=== PATIENT | male | born 1990 | race African-American/Black ===

== ENCOUNTER 2024-11-28 01:01 | Emergency (ER) | payer OTHER ==
[~2024-11-28] VITALS: Ht 172.7 cm; Wt 91.0 kg
[2024-11-28 01:06] VITALS: TEMP 36.3; O2SAT 100
[2024-11-28 01:50] VITALS: BP 114/74; PULSE 85; RESP 20; O2SAT 100
== END 2024-11-28 02:15 | disposition home or self-care (01) ==
LOC: ER 01:01
DX: J45.909 Unspecified asthma, uncomplicated (principal)
CPT/HCPCS: 99283